=== PATIENT | female | born 1990 | race Caucasian/White ===

== ENCOUNTER 2018-08-22 04:00 | Emergency (ER) | payer SELFPAY ==
[~2018-08-22] VITALS: Ht 157.5 cm; Wt 58.1 kg
[~2018-08-22 04:00] MED LIST: FESOL PO; FLAGYL500 MG PO; LEVAQUIN500 MG PO
--- OUTSIDE RECORDS SUMMARY | 2018-08-22 04:04 | XMS REPORT ---
Author Author Admin, [place] Organization [facility] Address [address] [address] Phone Allergies, Adverse Reactions, Alerts Allergy Name Reaction Description Start Date Severity Status Provider Allergies Unknown Conditions or Problems Problem Name Problem Code Onset Date Status Entry Date Provider Comment Standard Description Annotate Encounter for supervision of normal first , first trimester Active Anjum Barron MD Supervision of normal first Less than 8 weeks gestation of Active Anjum Barron MD Encounter for unspecified screening of mother Medication List Medication Instructions Start Date Stop Date Generic Name NDC Status Provider Patient Instruction Drug Treatment Unknown - unknown Vital Signs Date Name Value Unit Range Description blood pressure, diastolic 75 mm[Hg] BP glez blood pressure, systolic 125 mm[Hg] BP sys pulse rate E&M 87 /min Heart rate respiratory rate E&M 17 /min Resp rate weight E&M 126 [lb_av] Weight Measured Diagnostic Results Date Name Value Unit Range Description Lab Report: [id number] 7+Alc-Unbund, CBC With Differential/Platelet, ABO Teo ... - Blood bank Rh antibody Negative Negative Lab Report: [id number] 7+Alc-Unbund, CBC With Differential/Platelet, ABO Teo ... - Hematology hematocrit, blood 39.7 % 34.0-46.6 Lab Report: Ct, Ng, Trich vag by WENDI - Microbiology Neisseria gonorrhoeae DNA probe Negative Negative Lab Report: [id number] 7+Alc-Unbund, CBC With Differential/Platelet, ABO Teo ... - Urinalysis urine culture No growth Lab Report: [id number] 7+Alc-Unbund, CBC With Differential/Platelet, ABO Teo ... - Toxicology benzodiazepine screen, urine Negative [id number]=[id number] Lab Report: [id number] 7+Alc-Unbund, CBC With Differential/Platelet, ABO Teo ... - Hematology neutrophils as percent of blood leukocytes 68 % Not Estab. Lab Report: [id number] 7+Alc-Unbund, CBC With Differential/Platelet, ABO Teo ... - Toxicology amphetamine screen, urine Negative [id number] Lab Report: [id number] 7+Alc-Unbund, CBC With Differential/Platelet, ABO Teo ... - Chemistry human chorionic gonadotropin, total, serum 6101 m[iU]/mL Lab Report: [id number] 7+Alc-Unbund, CBC With Differential/Platelet, ABO Teo ... - Hematology basophils as percent of blood leukocytes 0 % Not Estab. Office Visit: Initial Maternity: 2 - Urinalysis protein, urine, semiquantitative (dipstick) Neg Lab Report: [id number] 7+Alc-Unbund, CBC With Differential/Platelet, ABO Teo ... - Blood bank ABO blood group A Lab Report: [id number] 7+[facility]c-Unbund, CBC With Differential/Platelet, ABO Teo ... - Serology rapid plasma reagin antibody, serum Non Reactive Non Reactive Office Visit: Initial Maternity: 2 - Chemistry beta HCG, urine, semiquantitative positive Lab Report: [id number] 7+Alc-Unbund, CBC With Differential/Platelet, ABO Teo ... - Chemistry hepatitis B surface antigen Negative Negative cannabinoid screen, urine Negative ng/mL Cutoff=50 Lab Report: [id number] 7+Alc-Unbund, CBC With Differential/Platelet, ABO Teo ... - Toxicology phencyclidine screen, urine Negative ng/mL Cutoff=25 Lab Report: [id number] 7+Alc-Unbund, CBC With Differential/Platelet, ABO Teo ... - Hematology mean corpuscular hemoglobin, RBC 31.1 pg 26.6-33.0 mean corpuscular hemoglobin concentration, RBC 33.0 G/DL % 31.5-35.7 Office Visit: Initial Maternity: 2 - Microbiology Herpes Simplex Virus Genital no Lab Report: [id number] 7+Alc-Unbund, CBC With Differential/Platelet, ABO Teo ... - Hematology erythrocyte (RBC) count 4.21 X10E6/UL 10*6/mm3 3.77-5.28 Office Visit: Initial Maternity: 2 - Urinalysis nitrite, urine, semiquantitative Neg Lab Report: [id number] 7+Alc-Unbund, CBC With Differential/Platelet, ABO Teo ... - Hematology hemoglobin, blood 13.1 g/dL 11.1-15.9 Lab Report: [id number] 7+Alc-Unbund, CBC With Differential/Platelet, ABO Teo ... - Blood bank Rh antigen Positive Lab Report: [id number] 7+Alc-Unbund, CBC With Differential/Platelet, ABO Teo ... - Chemistry Absolute Neutrophils 4.9 X10E3/UL 10*3/uL 1.4-7.0 Lab Report: [id number] 7+Alc-Unbund, CBC With Differential/Platelet, ABO Teo ... - Hematology lymphocytes as percent of blood leukocytes 23 % Not Estab. mean corpuscular volume, RBC 94 fL 79-97 Lab Report: [id number] 7+Alc-Unbund, CBC With Differential/Platelet, ABO Teo ... - Toxicology barbiturates screen, urine Negative Tjsanu=[id number] cocaine, urine Negative Xbdubp=984 Lab Report: [id number] 7+Alc-Unbund, CBC With Differential/Platelet, ABO Teo ... - Hematology basophil count, absolute 0.0 x10E3/uL 0.0-0.2 monocytes as percent of blood leukocytes 8 % Not Estab. Lab Report: Pap IG, rfx HPV ASCU - Lab Human Papillomavirus test result HPVNotTested Lab Report: [id number] 7+Alc-Unbund, CBC With Differential/Platelet, ABO Teo ... - Hematology Eosinophil Absolute Count 0.1 X10E3/UL 10*3/uL 0.0-0.4 eosinophils as percent of blood leukocytes 1 % Not Estab. Lab Report: Ct, Ng, Trich vag by WENDI - Lab chlamydia DNA probe Negative Negative Lab Report: [id number] 7+Alc-Unbund, CBC With Differential/Platelet, ABO Teo ... - Hematology red blood cell distribution width 13.0 % 12.3-15.4 leukocyte count, blood 7.1 X10E3/UL 10*3/mm3 3.4-10.8 monocyte count, blood, automated 0.5 X10E3/UL 10*3/uL 0.1-0.9 Lab Report: [id number] 7+Alc-Unbund, CBC With Differential/Platelet, ABO Teo ... - Chemistry immature granulocytes, percentage of total cells, blood 0 % Not Estab. Lab Report: [id number] 7+Alc-Unbund, CBC With Differential/Platelet, ABO Teo ... - Hematology platelet count 275 X10E3/UL 10*3/mm3 150-379 Office Visit: Initial Maternity: 2 - Urinalysis ketones, urine, by test strip Neg Lab Report: [id number] 7+Alc-Unbund, CBC With Differential/Platelet, ABO Teo ... - Hematology lymphocyte count, blood, automated 1.6 X10E3/UL 10*3/mm3 0.7-3.1 Lab Report: [id number] 7+Alc-Unbund, CBC With Differential/Platelet, ABO Teo ... - Toxicology opiates, urine, semiquantitative Negative [id number]=[id number] Encounters Date Encounter Provider Code Facility 09:47:53 [facility] New Patient Detailed - [id number] Anjum Barron MD CPT-60084 [place] [facility] Procedures Code Procedure Name Date Entry Date Standard Description CPT-97801 OB Ultrasound, limited 09:47:56 [facility] CPT-47134 Urinalysis - - In House 09:47:56 [facility] CPT-23566 Urinalysis - Dip only - In House 09:47:56 [facility]
[2018-08-22 04:28] LABS: BASOPHILS % 0.3 % (0.0-1.0); EOSINOPHILS # (AUTO) 0.1 (0.0-0.4); EOSINOPHILS % 0.6 % (0.0-6.0); HEMATOCRIT 36.4 % (34.2-44.1); HEMOGLOBIN 12.6 g/dL (12.0-16.0); LYMPHOCYTES # (AUTO) 2.5 (1.0-3.2); MEAN CORPUSCULAR HEMOGLOBIN 31.7 pg (28-32); MEAN CORPUSCULAR HGB CONC 34.6 g/dL (31-35); MEAN CORPUSCULAR VOLUME 91.7 fL (81-99); MONOCYTES # (AUTO) 0.7 (0.2-0.8); MONOCYTES % 5.6 % (4.4-11.3); NEUTROPHILS # (AUTO) 8.5 (2.1-6.9); NEUTROPHILS % 72.2 % (38.7-80.0); PLATELET COUNT 253 x10e3/uL (140-360); RED BLOOD COUNT 3.97 x10e6/uL (3.6-5.1); RED CELL DISTRIBUTION WIDTH 12.2 % (11.7-14.4)
[2018-08-22 04:43] LABS: ALANINE AMINOTRANSFERASE 8 IU/L (0-55); ALBUMIN 3.9 g/dL (3.5-5.0); ALBUMIN/GLOBULIN RATIO 1.2 (0.8-2.0); ALKALINE PHOSPHATASE 33 IU/L (40-150); ANION GAP 13.9 mmol/L (8-16); BLOOD UREA NITROGEN 12 mg/dL (7-26); BUN/CREATININE RATIO 13 (6-25); CALCIUM 9.2 mg/dL (8.4-10.2); CARBON DIOXIDE 22 mmol/L (22-29); CHLORIDE 107 mmol/L (98-107); CREATININE, SERUM 0.93 mg/dL (0.57-1.11); EST GLOMERULAR FILTRATION RATE > 60 ML/MIN (60-); GLUCOSE 102 mg/dL (74-118); POTASSIUM 3.9 mmol/L (3.5-5.1); SODIUM 139 mmol/L (136-145)
== END 2018-08-22 04:55 | disposition home or self-care (01) ==
LOC: ER 04:00
DX: O04.6 Delayed or excessive hemorrhage following (induced) termination of pregnancy (principal)
CPT/HCPCS: 36415; 80053; 85025; 99283